=== PATIENT | female | born 2005 | race Caucasian/White ===

== ENCOUNTER 2024-02-12 07:34 | Outpatient (CLI) | payer OTHER | END 2024-02-12 07:35 | disposition home or self-care (01) | LOC: SCSMRI 07:34 | PROVIDERS: ATTEND Family Medicine | DX: E34.8 Other specified endocrine disorders (principal); J34.89 Other specified disorders of nose and nasal sinuses | CPT/HCPCS: 70553; 76376 ==

== ENCOUNTER 2024-02-15 08:09 | Day surgery (SDC) | payer OTHER ==
[2024-02-15] MEDS: SODIUM CHLORIDE 0.9% IVPB SCH (09:07)
[2024-02-15] MEDS: IRON DEXTRAN IVPB SCH (09:07)
[2024-02-15 11:30] VITALS: BP 112/62; TEMP 98.1
== END 2024-02-15 12:11 | disposition home or self-care (01) ==
LOC: ONC/OP 08:09
PROVIDERS: ATTEND Family Medicine
DX: E61.1 Iron deficiency (principal); Z88.0 Allergy status to penicillin
CPT/HCPCS: 96365; J1750; J7050